=== PATIENT | male | born 1960 | race Caucasian/White ===

== ENCOUNTER 2016-11-20 18:19 | Emergency (ER) | payer OTHER ==
[~2016-11-20] VITALS: Ht 172.7 cm; Wt 159.6 kg
[~2016-11-20 18:19] MED LIST: NOHOMEMEDS
[2016-11-20] MEDS ORDERED: METHOCARBAMOL500 MG PO (19:14)
[2016-11-20] MEDS ORDERED: MELOXICAM15 MG PO (19:14)
[2016-11-20] MEDS ORDERED: HYDROCHLOROTHIA25 MG PO (19:14)
[2016-11-20] MEDS ORDERED: TRAMADOL HCL50 MG PO (21:27)
[2016-11-20 22:00] VITALS: BP 150/65
== END 2016-11-20 22:18 | disposition home or self-care (01) ==
LOC: EME 18:19
DX: S46.912D Strain of unspecified muscle, fascia and tendon at shoulder and upper arm level, left arm, subsequent encounter (principal); X50.9XXD Other and unspecified overexertion or strenuous movements or postures, subsequent encounter; R20.2 Paresthesia of skin; R07.9 Chest pain, unspecified; F17.200 Nicotine dependence, unspecified, uncomplicated
CPT/HCPCS: 93005; 93971; 99281; 99284

== ENCOUNTER 2016-11-25 14:28 | Emergency (ER) | payer OTHER ==
[~2016-11-25] VITALS: Ht 172.7 cm; Wt 156.2 kg
[~2016-11-25 14:28] MED LIST changes: +HYDROCHLOROTHIA25 MG PO; +MELOXICAM15 MG PO; +METHOCARBAMOL500 MG PO; +TRAMADOL HCL50 MG PO
[2016-11-25 17:25] LABS: INFLUENZA A VIRAL ANTIGEN NEGATIVE
[2016-11-25 17:37] LABS: INFLUENZA B VIRAL ANTIGEN POSITIVE
[2016-11-25] MEDS ORDERED: HYCODAN SYRUP480 ML PO (17:42)
[2016-11-25] MEDS ORDERED: TAMIFLU75 MG PO (17:42)
[2016-11-25 17:50] VITALS: BP 145/77
== END 2016-11-25 17:51 | disposition home or self-care (01) ==
LOC: EME 14:28
PROVIDERS: Nurse Practitioner Family
DX: J10.1 Influenza due to other identified influenza virus with other respiratory manifestations (principal); Z87.891 Personal history of nicotine dependence
CPT/HCPCS: 71020; 87502; 99281; 99283

== ENCOUNTER 2016-12-12 16:22 | Inpatient (IN) | payer OTHER ==
[~2016-12-12] VITALS: Ht 172.7 cm; Wt 164.7 kg
[~2016-12-12 16:22] MED LIST changes: +HYCODAN SYRUP480 ML PO; +TAMIFLU75 MG PO
[2016-12-12 18:58] LABS: HEMATOCRIT 39.6 % (38.0-50.0); MCH 29.7 PG (29.0-34.0); MCHC 32.6 G/DL (30.0-36.0); MEAN PLAT.VOLUME 9.8 uM^3 (9.0-12.4); PLATELET COUNT 251 K/uL (156-360); RBC DIS.WIDTH-CV 14.6 % (11.8-14.6); RBC DIS.WIDTH-SD 46.5 % (39-53); RED BLOOD COUNT 4.35 M/uL (4.00-5.50); WHITE BLOOD COUNT 12.4 K/uL (4.1-10.2)
[2016-12-12 19:07] LABS: CHLORIDE 104 mEq/L (99-109); POTASSIUM 3.8 mEq/L (3.7-5.4); SODIUM 140 mEq/L (136-147)
[2016-12-12 19:09] LABS: GLUCOSE 98 mg/dL (70-99)
[2016-12-12 19:10] LABS: ANION GAP 10 MEQ/L (2-14)
[2016-12-12 19:11] LABS: TOTAL BILIRUBIN 0.9 mg/dL (0.0-1.0)
[2016-12-12 19:13] LABS: ALKALINE PHOSPHATASE 58 IU/L (3-129); GFR ESTIMATE (CALCULATED) > 59 mL/min/
[2016-12-12 19:14] LABS: UREA NITROGEN (BUN) 14 mg/dL (9-23)
[2016-12-12] MEDS ORDERED: TYLENOL EXTRA500 MG PO (20:45)
[2016-12-12] MEDS ORDERED: LISINOPRIL20 MG PO (20:45)
[2016-12-12] MEDS ORDERED: CEPHALEXIN500 MG PO (20:46)
[2016-12-12] MEDS ORDERED: LO-DOSE ASPIRIN81 M2 PO (20:47)
[2016-12-12 21:57] LABS: ADD MIUA? NO; BILIRUBIN NEGATIVE; BLOOD NEGATIVE; COLOR STRAW ((YELLOW)); GLUCOSE (STRIP) NEGATIVE; KETONES NEGATIVE; LEUKOCYTES NEGATIVE; NITRITE NEGATIVE; PROTEIN (STRIP) NEGATIVE; SPECIFIC GRAVITY 1.014 (1.000-1.030); UCUL ADDED? NO; UROBILINOGEN 0.2 MG/DL (0.2-1.0)
[2016-12-13 00:21] VITALS: BP 146/82
[2016-12-13 04:55] VITALS: BP 144/71
[2016-12-13 06:03] LABS: EOSINOPHIL (%) 1.8 % (0-5); EOSINOPHIL COUNT 0.2 K/uL (0-0.3); HEMATOCRIT 37.2 % (38.0-50.0); IMMATURE GRANULOCYTE (%) 0.6 % (0.0-0.7); IMMATURE GRANULOCYTE COUNT 0.1 K/uL; LYMPHOCYTE COUNT 1.9 K/uL (1.0-2.8); MCH 29.2 PG (29.0-34.0); MCHC 31.5 G/DL (30.0-36.0); MCV 92.8 FL (86-99); MEAN PLAT.VOLUME 10.1 uM^3 (9.0-12.4); MONOCYTE (%) 7.8 % (3-12); MONOCYTE COUNT 0.8 K/uL (0-0.8); NEUTROPHIL (%) 70.2 % (45-76); NEUTROPHIL COUNT 6.8 K/uL (1.8-6.4); PLATELET COUNT 255 K/uL (156-360); RBC DIS.WIDTH-CV 14.7 % (11.8-14.6); RBC DIS.WIDTH-SD 48.2 % (39-53); RED BLOOD COUNT 4.01 M/uL (4.00-5.50); WHITE BLOOD COUNT 9.6 K/uL (4.1-10.2)
[2016-12-13 06:18] LABS: ANION GAP 8 MEQ/L (2-14); CHLORIDE 100 MEQ/L (99-109); GFR ESTIMATE (CALCULATED) > 59 mL/min/; GLUCOSE 107 mg/dL (70-99); POTASSIUM 3.7 MEQ/L (3.7-5.4); SAMPLE HEMOLYSIS CHECK 0; SAMPLE ICTERIC CHECK 0; SAMPLE LIPEMIA CHECK 0; SODIUM 135 MEQ/L (136-147); UREA NITROGEN (BUN) 11 mg/dL (9-23)
[2016-12-13 08:03] VITALS: BP 149/80
[2016-12-13 17:16] VITALS: BP 129/77
[2016-12-13 23:57] LABS: METH RESISTANT S AUREUS PCR NEGATIVE (NEGATIVE)
[2016-12-14 00:15] LABS: PROBE CHECK PASS; SPECIMEN PROCESSING CONTROL PASS
[2016-12-14 00:16] VITALS: BP 135/67
[2016-12-14 07:44] VITALS: BP 129/73
[2016-12-14 09:06] LABS: HEMATOCRIT 40.3 % (38.0-50.0); MCH 29.1 PG (29.0-34.0); MCV 90.8 FL (86-99); MEAN PLAT.VOLUME 9.4 uM^3 (9.0-12.4); PLATELET COUNT 285 K/uL (156-360); RBC DIS.WIDTH-CV 14.7 % (11.8-14.6); RBC DIS.WIDTH-SD 47.9 % (39-53); RED BLOOD COUNT 4.44 M/uL (4.00-5.50); WHITE BLOOD COUNT 10.2 K/uL (4.1-10.2)
[2016-12-14 09:30] LABS: ANION GAP 9 MEQ/L (2-14); CHLORIDE 99 MEQ/L (99-109); GFR ESTIMATE (CALCULATED) > 59 mL/min/; GLUCOSE 123 mg/dL (70-99); POTASSIUM 3.8 MEQ/L (3.7-5.4); SAMPLE HEMOLYSIS CHECK 0; SAMPLE ICTERIC CHECK 0; SAMPLE LIPEMIA CHECK 0; SODIUM 136 MEQ/L (136-147); UREA NITROGEN (BUN) 10 mg/dL (9-23)
[2016-12-14 15:43] VITALS: BP 134/70
[2016-12-14 23:43] VITALS: BP 131/62
[2016-12-15] VITALS: BP 124/75
[2016-12-15 07:21] LABS: HEMATOCRIT 38.7 % (38.0-50.0); MCH 30.5 PG (29.0-34.0); MCHC 33.1 G/DL (30.0-36.0); MCV 92.4 FL (86-99); MEAN PLAT.VOLUME 9.6 uM^3 (9.0-12.4); PLATELET COUNT 277 K/uL (156-360); RBC DIS.WIDTH-CV 14.6 % (11.8-14.6); RBC DIS.WIDTH-SD 48.4 % (39-53); RED BLOOD COUNT 4.19 M/uL (4.00-5.50); WHITE BLOOD COUNT 10.7 K/uL (4.1-10.2)
[2016-12-15 07:43] VITALS: BP 138/64
[2016-12-15 07:48] LABS: ANION GAP 11 MEQ/L (2-14); C-REACTIVE PROTEIN 41.3 MG/L (0-10); CHLORIDE 98 MEQ/L (99-109); GFR ESTIMATE (CALCULATED) > 59 mL/min/; GLUCOSE 108 mg/dL (70-99); POTASSIUM 3.9 MEQ/L (3.7-5.4); SAMPLE HEMOLYSIS CHECK 0; SAMPLE ICTERIC CHECK 0; SAMPLE LIPEMIA CHECK 0; SODIUM 134 MEQ/L (136-147); UREA NITROGEN (BUN) 10 mg/dL (9-23)
[2016-12-15 15:23] VITALS: BP 113/64
[2016-12-15 23:05] VITALS: BP 131/74
[2016-12-16 06:09] LABS: HEMATOCRIT 39.1 % (38.0-50.0); MCHC 32.5 G/DL (30.0-36.0); MCV 92.4 FL (86-99); MEAN PLAT.VOLUME 9.5 uM^3 (9.0-12.4); PLATELET COUNT 285 K/uL (156-360); RBC DIS.WIDTH-CV 14.7 % (11.8-14.6); RBC DIS.WIDTH-SD 48.5 % (39-53); RED BLOOD COUNT 4.23 M/uL (4.00-5.50); WHITE BLOOD COUNT 10.3 K/uL (4.1-10.2)
[2016-12-16 06:31] LABS: ANION GAP 8 MEQ/L (2-14); CHLORIDE 98 MEQ/L (99-109); GFR ESTIMATE (CALCULATED) > 59 mL/min/; GLUCOSE 104 mg/dL (70-99); POTASSIUM 3.9 MEQ/L (3.7-5.4); SAMPLE HEMOLYSIS CHECK 0; SAMPLE ICTERIC CHECK 0; SAMPLE LIPEMIA CHECK 0; SODIUM 132 MEQ/L (136-147); UREA NITROGEN (BUN) 16 mg/dL (9-23)
[2016-12-16 07:37] VITALS: BP 127/70
[2016-12-16 15:37] VITALS: BP 135/63
[2016-12-16] MEDS ORDERED: BACTRIM,SEPT1 TABLET PO (15:47)
[2016-12-16] MEDS ORDERED: AUGMENTIN875 MG PO (15:47)
[2016-12-16] MEDS ORDERED: HYDROCHLOROTH12.5 M3 PO ×2 (16:22→16:31)
[2016-12-16] MEDS ORDERED: LASIX20 MG PO ×2 (16:22→16:31)
== END 2016-12-16 16:37 | disposition home health service (06) | DRG 602 ==
LOC: EME 16:22 → 4SOUTH 22:38 → EDOF 22:38 → 4SOUTH 23:52
PROVIDERS: Internal Medicine; Internal Medicine Infectious Disease; Nurse Practitioner Family; Physician Assistant
DX: L03.818 Cellulitis of other sites (principal); I50.33 Acute on chronic diastolic (congestive) heart failure; E87.1 Hypo-osmolality and hyponatremia; Z68.43 Body mass index [BMI] 50.0-59.9, adult; N49.2 Inflammatory disorders of scrotum; I11.0 Hypertensive heart disease with heart failure; L40.50 Arthropathic psoriasis, unspecified; D64.9 Anemia, unspecified; G47.33 Obstructive sleep apnea (adult) (pediatric); E66.01 Morbid (severe) obesity due to excess calories; Z91.19 Patient's noncompliance with other medical treatment and regimen; N43.2 Other hydrocele; G89.29 Other chronic pain; R19.7 Diarrhea, unspecified
CPT/HCPCS: 71020; 76870; 80048; 80053; 80202; 81003; 83605; 83880; 85025; 85027; 86140; 87040; 87641; 93306; 99281; 99285; J1644; J1940; J2543; J3370; J7050

== ENCOUNTER 2016-12-22 02:54 | Emergency (ER) | payer OTHER ==
[~2016-12-22] VITALS: Ht 172.7 cm; Wt 155.8 kg
[~2016-12-22 02:54] MED LIST changes: +AUGMENTIN875 MG PO; +BACTRIM,SEPT1 TABLET PO; +CEPHALEXIN500 MG PO; +HYDROCHLOROTH12.5 M3 PO; +LASIX20 MG PO; +LISINOPRIL20 MG PO; +LO-DOSE ASPIRIN81 M2 PO; +TYLENOL EXTRA500 MG PO
[2016-12-22] MEDS ORDERED: PROVENTIL HFA6.7 GM IH (04:37)
[2016-12-22] MEDS ORDERED: PHENERGAN-CODE120 ML PO (04:37)
[2016-12-22] MEDS ORDERED: LEVAQUIN750 MG PO (04:37)
[2016-12-22 04:45] VITALS: BP 157/76
== END 2016-12-22 04:46 | disposition home or self-care (01) ==
LOC: EME 02:54
DX: J20.9 Acute bronchitis, unspecified (principal); J06.9 Acute upper respiratory infection, unspecified; I10 Essential (primary) hypertension; Z79.82 Long term (current) use of aspirin; Z87.891 Personal history of nicotine dependence
CPT/HCPCS: 71020; 80048; 83605; 85027; 99281; 99284

== ENCOUNTER 2017-01-26 10:31 | Emergency (ER) | payer OTHER ==
[~2017-01-26] VITALS: Ht 172.7 cm; Wt 163.3 kg
[~2017-01-26 10:31] MED LIST changes: +LEVAQUIN750 MG PO; +PHENERGAN-CODE120 ML PO; +PROVENTIL HFA6.7 GM IH
[2017-01-26 12:20] LABS: EOSINOPHIL (%) 2.5 % (0-5); EOSINOPHIL COUNT 0.3 K/uL (0-0.3); HEMATOCRIT 38.7 % (38.0-50.0); IMMATURE GRANULOCYTE (%) 0.7 % (0.0-0.7); IMMATURE GRANULOCYTE COUNT 0.1 K/uL; LYMPHOCYTE COUNT 1.6 K/uL (1.0-2.8); MCHC 32.3 G/DL (30.0-36.0); MEAN PLAT.VOLUME 10.2 uM^3 (9.0-12.4); MONOCYTE (%) 6.1 % (3-12); MONOCYTE COUNT 0.6 K/uL (0-0.8); NEUTROPHIL (%) 75.6 % (45-76); PLATELET COUNT 270 K/uL (156-360); RBC DIS.WIDTH-CV 14.1 % (11.8-14.6); RBC DIS.WIDTH-SD 47.6 % (39-53); RED BLOOD COUNT 4.16 M/uL (4.00-5.50); WHITE BLOOD COUNT 10.6 K/uL (4.1-10.2)
[2017-01-26 12:30] LABS: CHLORIDE 105 mEq/L (99-109); POTASSIUM 4.1 mEq/L (3.7-5.4); SODIUM 139 mEq/L (136-147)
[2017-01-26 12:32] LABS: GLUCOSE 113 mg/dL (70-99)
[2017-01-26 12:33] LABS: ANION GAP 12 MEQ/L (2-14)
[2017-01-26 12:34] LABS: TOTAL BILIRUBIN 0.8 mg/dL (0.0-1.0)
[2017-01-26 12:36] LABS: ALKALINE PHOSPHATASE 60 IU/L (3-129); GFR ESTIMATE (CALCULATED) > 59 mL/min/
[2017-01-26 12:37] LABS: UREA NITROGEN (BUN) 14 mg/dL (9-23)
[2017-01-26 13:19] VITALS: BP 168/66
== END 2017-01-26 13:21 | disposition home or self-care (01) ==
LOC: EME 10:31
PROVIDERS: Emergency Medicine
DX: I89.0 Lymphedema, not elsewhere classified (principal); I10 Essential (primary) hypertension; L27.1 Localized skin eruption due to drugs and medicaments taken internally; T50.1X5A Adverse effect of loop [high-ceiling] diuretics, initial encounter; G89.29 Other chronic pain; L40.50 Arthropathic psoriasis, unspecified; E66.01 Morbid (severe) obesity due to excess calories; Z68.43 Body mass index [BMI] 50.0-59.9, adult; F17.200 Nicotine dependence, unspecified, uncomplicated; Z79.82 Long term (current) use of aspirin
CPT/HCPCS: 80053; 85025; 99281; 99284

== ENCOUNTER 2017-02-10 03:03 | Emergency (ER) | payer OTHER ==
[~2017-02-10] VITALS: Ht 172.7 cm; Wt 166.5 kg
[2017-02-10 03:45] LABS: HEMATOCRIT 37.6 % (38.0-50.0); MCHC 31.4 G/DL (30.0-36.0); MCV 92.4 FL (86-99); MEAN PLAT.VOLUME 9.5 uM^3 (9.0-12.4); PLATELET COUNT 268 K/uL (156-360); RBC DIS.WIDTH-CV 14.1 % (11.8-14.6); RBC DIS.WIDTH-SD 47.8 % (39-53); RED BLOOD COUNT 4.07 M/uL (4.00-5.50); WHITE BLOOD COUNT 9.7 K/uL (4.1-10.2)
[2017-02-10 03:59] LABS: CHLORIDE 106 mEq/L (99-109); POTASSIUM 3.9 mEq/L (3.7-5.4); SODIUM 140 mEq/L (136-147)
[2017-02-10 04:01] LABS: GLUCOSE 123 mg/dL (70-99)
[2017-02-10 04:03] LABS: ANION GAP 10 MEQ/L (2-14)
[2017-02-10 04:05] LABS: GFR ESTIMATE (CALCULATED) > 59 mL/min/
[2017-02-10 04:06] LABS: UREA NITROGEN (BUN) 14 mg/dL (9-23)
[2017-02-10 04:15] LABS: INTER. NORMALIZED RATIO 1.1; PROTHROMBIN TIME 10.9 (9.2-11.2); PTT 28.2 (25-32)
[2017-02-10 06:38] LABS: ADD MIUA? NO; BILIRUBIN NEGATIVE; BLOOD NEGATIVE; COLOR YELLOW ((YELLOW)); GLUCOSE (STRIP) NEGATIVE; KETONES NEGATIVE; LEUKOCYTES NEGATIVE; NITRITE NEGATIVE; PROTEIN (STRIP) NEGATIVE; SPECIFIC GRAVITY 1.019 (1.000-1.030); UCUL ADDED? NO; UROBILINOGEN 0.2 MG/DL (0.2-1.0)
[2017-02-10] MEDS ORDERED: AUGMENTIN875 MG PO (07:05)
[2017-02-10 07:25] VITALS: BP 144/65
== END 2017-02-10 07:26 | disposition home or self-care (01) ==
LOC: EME 03:03
PROVIDERS: Emergency Medicine
DX: N49.2 Inflammatory disorders of scrotum (principal); R60.0 Localized edema; G89.29 Other chronic pain; I10 Essential (primary) hypertension; L40.50 Arthropathic psoriasis, unspecified; Z79.82 Long term (current) use of aspirin; Z88.8 Allergy status to other drugs, medicaments and biological substances; Z87.891 Personal history of nicotine dependence
CPT/HCPCS: 71020; 74176; 80048; 81003; 83880; 85027; 85610; 85730; 99281; 99285

== ENCOUNTER 2017-12-19 04:03 | Emergency (ER) | payer OTHER ==
[~2017-12-19] VITALS: Ht 172.7 cm; Wt 149.0 kg
[2017-12-19 05:36] LABS: HEMATOCRIT 44.3 % (38.0-50.0); MCH 30.7 PG (29.0-34.0); MCHC 33.9 G/DL (30.0-36.0); MCV 90.8 FL (86-99); PLATELET COUNT 224 K/uL (156-360); RBC DIS.WIDTH-CV 13.1 % (11.8-14.6); RED BLOOD COUNT 4.88 M/uL (4.00-5.50)
[2017-12-19 05:44] LABS: ALBUMIN 3.9 g/dL (3.2-4.8); CHLORIDE 98 mEq/L (99-109); POTASSIUM 4.1 mEq/L (3.7-5.4); SODIUM 133 mEq/L (136-147)
[2017-12-19 05:46] LABS: GLUCOSE 391 mg/dL (70-99); TOTAL PROTEIN 7.5 g/dL (6.4-8.3)
[2017-12-19 05:48] LABS: TOTAL BILIRUBIN 0.9 mg/dL (0.0-1.0)
[2017-12-19 05:50] LABS: ALKALINE PHOSPHATASE 79 IU/L (3-129); GFR ESTIMATE (CALCULATED) > 59 mL/min/ (58.99-99999)
[2017-12-19 05:51] LABS: AST (GOT) 27 IU/L (2-34); UREA NITROGEN (BUN) 14 mg/dL (9-23)
[2017-12-19 05:53] LABS: ALT (GPT) 43 IU/L (3-49); LIPASE 125 U/L (1.0-51.0)
[2017-12-19] MEDS ORDERED: ECZEMA ANTI-I28.3 GM TP (05:56)
[2017-12-19] MEDS ORDERED: ATARAX,VISTARIL25 MG PO (05:56)
[2017-12-19 06:42] LABS: APPEARANCE CLEAR ((CLEAR)); BILIRUBIN NEGATIVE; BLOOD NEGATIVE; COLOR YELLOW ((YELLOW)); GLUCOSE (STRIP) >=500; KETONES NEGATIVE; LEUKOCYTES NEGATIVE; NITRITE NEGATIVE; PROTEIN (STRIP) NEGATIVE; SPECIFIC GRAVITY 1.031 (1.000-1.030); UCUL ADDED? NO; UROBILINOGEN 0.2 MG/DL (0.2-1.0)
[2017-12-19 08:02] VITALS: BP 165/79
== END 2017-12-19 08:03 | disposition home or self-care (01) ==
LOC: EME 04:03
PROVIDERS: Emergency Medicine
DX: L30.9 Dermatitis, unspecified (principal); R73.9 Hyperglycemia, unspecified; T38.0X5A Adverse effect of glucocorticoids and synthetic analogues, initial encounter; I10 Essential (primary) hypertension; Z79.82 Long term (current) use of aspirin; Z87.891 Personal history of nicotine dependence
CPT/HCPCS: 80053; 81003; 82948; 83690; 85027; 99281; 99285; J7030; Q0177

== ENCOUNTER 2018-01-18 04:27 | Emergency (ER) | payer OTHER ==
[~2018-01-18] VITALS: Ht 172.7 cm; Wt 146.6 kg
[~2018-01-18 04:27] MED LIST changes: +ATARAX,VISTARIL25 MG PO; +ECZEMA ANTI-I28.3 GM TP
[2018-01-18] MEDS ORDERED: TESSALON PERLE100 MG PO (06:28)
[2018-01-18] MEDS ORDERED: VENTOLIN HFA18 GM IH (06:28)
[2018-01-18] MEDS ORDERED: LEVAQUIN500 MG PO (06:29)
[2018-01-18 06:51] VITALS: BP 133/63
== END 2018-01-18 06:52 | disposition home or self-care (01) ==
LOC: EME 04:27
DX: J18.0 Bronchopneumonia, unspecified organism (principal); E11.9 Type 2 diabetes mellitus without complications; I10 Essential (primary) hypertension; E66.01 Morbid (severe) obesity due to excess calories; Z87.891 Personal history of nicotine dependence; Z88.8 Allergy status to other drugs, medicaments and biological substances
CPT/HCPCS: 71046; 87651 90; 94640; 99281; 99284